=== PATIENT | male | born 1995 | race Caucasian/White ===

== ENCOUNTER 2021-04-03 15:34 | Emergency (ER) | payer BC ==
--- NOTE | 2021-04-03 17:08 | CR ---
PROCEDURE INFORMATION: Exam: XR Left Hand Exam date and time: 04/03/2021 4:54 PM Age: 25 years old Clinical indication: Other: Piece of metal in left hand TECHNIQUE: Imaging protocol: XR Left hand. Views: 1 or 2 views. COMPARISON: No relevant prior studies available. FINDINGS: Bones/joints: No fracture. No malalignment. Soft tissues: A 4 x 2 mm metallic foreign body seen in the dorsal soft tissues projecting over the 4th and 5th metacarpals. Soft tissue swelling noted as well. IMPRESSION: Metallic foreign body as above
[2021-04-03] MEDS ORDERED: Lidocaine 1% 30 ML SDV INJECT ONE (17:35)
--- NOTE | 2021-04-03 19:42 | EDM.PDOC ---
ED HPI GENERAL MEDICAL PROBLEM - General Chief Complaint: Upper Extremity Injury/Pain Stated Complaint: LEFT PINKY KNUCKLE AREA, PIECE OF STEEL IN SKIN Time Seen by Provider: 04/03/21 18:00 Source of Information: Reports: Patient, RN, RN Notes Reviewed History Limitations: Reports: No Limitations - History of Present Illness INITIAL COMMENTS - FREE TEXT/NARRATIVE: Jose is a 25 y/o male who presents to the ED via personal vehicle with complaints of a metal shard stuck in his left hand. The patient reports he was changing a wheel bearing with a colleague under tension, without gloves, and the wheel was dropped. He notes this incident occurred approximately two hours prior. He denies loss of motor or sensory function to the left hand. He notes pain, redness, and swelling that has progressively worsened since the incident. He has taken no medication or performed any supportive cares for his symptoms. Patient is not current with his tetanus vaccine. - Related Data Allergies Allergy/AdvReac Type Severity Reaction Status Date / Time No Known Allergies Allergy Verified 04/03/21 16:23 Home Meds: Home Meds . [No Known Home Meds] 06/01/14 [History] Past Medical History - Past Health History Medical/Surgical History: Denies Medical/Surgical History HEENT History: Reports: Impaired Vision Cardiovascular History: Reports: None Respiratory History: Reports: None Gastrointestinal History: Reports: None Genitourinary History: Reports: None Musculoskeletal History: Reports: None Neurological History: Reports: None Psychiatric History: Reports: None Endocrine/Metabolic History: Reports: None Hematologic History: Reports: None Immunologic History: Reports: None Oncologic (Cancer) History: Reports: None Dermatologic History: Reports: None - Infectious Disease History Infectious Disease History: Reports: None - Past Surgical History Head Surgeries/Procedures: Reports: None Social & Family History - Family History Family Medical History: No Pertinent Family History - Tobacco Use Tobacco Use Status *Q: Never Tobacco User - Caffeine Use Caffeine Use: Reports: Coffee, Soda - Recreational Drug Use Recreational Drug Use: No - Living Situation & Occupation Living situation: Reports: with Family Occupation: Employed Review of Systems - Review of Systems Review Of Systems: Comprehensive ROS is negative, except as noted in HPI. ED EXAM, GENERAL - Physical Exam Exam: See Below Exam Limited By: No Limitations General Appearance: Alert, No Apparent Distress Eye Exam: Bilateral Eye: EOMI, Normal Inspection, PERRL (3mm) Ears: Normal External Exam, Hearing Grossly Normal Nose: Normal Inspection, Normal Mucosa, No Blood Throat/Mouth: Normal Inspection, Normal Oropharynx, Normal Voice, No Airway Compromise Head: Atraumatic, Normocephalic Neck: Normal Inspection, Supple, Non-Tender, Full Range of Motion Respiratory/Chest: No Respiratory Distress, Lungs Clear, Normal Breath Sounds, No Accessory Muscle Use, Chest Non-Tender Cardiovascular: Normal Peripheral Pulses, Regular Rate, Rhythm, No Gallop, No Murmur, No Rub Peripheral Pulses: 2+: Radial (L), Radial (R) GI/Abdominal: Normal Bowel Sounds, Soft, Non-Tender (Male) Exam: Deferred Rectal (Males) Exam: Deferred Back Exam: Normal Inspection, Full Range of Motion Extremities: Normal Range of Motion, No Pedal Edema, Normal Capillary Refill, Arm Pain (To posterior left hand), Redness (To posterior left hand), Other (Swelling to posterior left hand). No: Increased Warmth, Mottled, Pallor Neurological: Alert, Oriented, CN II-XII Intact, Normal Cognition, Normal Gait, No Motor/Sensory Deficits Psychiatric: Normal Affect, Normal Mood Skin Exam: Warm, Dry, Erythema (To posterior left hand), Other (Swelling to posterior left hand). No: Cyanosis, Ecchymosis, Jaundice, Mottled, Pallor ED TRAUMA EXTREMITY PROCEDURES - Laceration/Wound Repair Left Posterior Hand Lac/Wound Length In cm: 2 Appearance: Superficial, Irregular, Clean Distal NVT: Neuro & Vascular Intact, No Tendon Injury Anesthetic Type: Local Local Anesthesia - Lidocaine (Xylocaine): 1% Plain Local Anesthetic Volume: 5cc Skin Prep: Chlorhexidine (Hibiciens), Saline, Sterile Drape Saline Irrigation (cc's): 20 Exploration/Debridement/Repair: Wound Explored, In a Bloodless Field, Explored to Base, No Foreign Material Found Closed With: Sutures Suture Size: 4-0 # of Sutures: 3 Suture Type: Prolene, Interrupted, Simple Drain Placement: No Sterile Dressing Applied: Nurse Tetanus Status Addressed: Yes Complications: No - Foreign Body Removal Indication:: Metal shard confirmed in left posterior hand via Xray Consent Obtained: Patient Performing Doctor:: Dena Gtz Foreign Body Other Location Comment:: Left posterior hand Anesthesia Type: Local Anesthesia Other:: Lidocaine 1% Findings:: Unable to retrieve metal shard. Ultrasound and Fluoroscopy utilized to locate foreign body, without success. Complications:: No Course - Vital Signs Last Recorded V/S: Last Vital Signs Temp 97.1 F 04/03/21 16:18 Pulse 60 04/03/21 16:18 Resp 20 04/03/21 16:18 BP 108/97 H 04/03/21 16:18 Pulse Ox 99 04/03/21 16:18 - Orders/Labs/Meds Orders: Active Orders 24 hr Category Date Time Status Fluoro Up To 1Hr [CR] Routine Exams 04/03/21 18:37 Taken Meds: Medications Discontinued Medications Generic Name Dose Route Start Last Admin Trade Name Freq PRN Reason Stop Dose Admin Amoxicillin/Clavulanate Potassium 1 tab 04/03/21 19:43 04/03/21 19:51 Amoxicillin/Clavulanate K 875-125 Mg Tab PO 04/03/21 19:44 1 tab ONETIME ONE Administration Bacitracin 1 dose 04/03/21 19:43 04/03/21 19:51 Bacitracin Oint 1 Gm U/D Packet TOP 04/03/21 19:44 1 dose ONETIME ONE Administration Lidocaine HCl 30 ml 04/03/21 17:35 04/03/21 17:51 Lidocaine 1% 30 Ml Sdv INJECT 04/03/21 17:36 30 ml ONETIME ONE Administration - Re-Assessments/Exams Free Text/Narrative Re-Assessment/Exam: 04/03/21 Foreign body to left hand confirmed via x-ray. Attempt to remove foreign body unsuccessful. Ultrasound and Fluoroscope used for assistance without success. Will provide prophylaxis treatment with Augmentin. Laceration wound care, as well as suture removal reviewed with patient. Red flag signs and symptoms which would warrant reevaluation discussed. Patient verbalized understanding and agreement with the plan of care. Departure - Departure Time of Disposition: 19:39 Disposition: Home, Self-Care 01 Condition: Good Clinical Impression: Foreign body of left hand Qualifiers: Encounter type: initial encounter Qualified Code(s): S60.552A - Superficial foreign body of left hand, initial encounter - Discharge Information *PRESCRIPTION DRUG MONITORING PROGRAM REVIEWED*: Not Applicable *COPY OF PRESCRIPTION DRUG MONITORING REPORT IN PATIENT RAMÍREZ: Not Applicable Instructions: Hand or Foot Foreign Body, Adult Referrals: PCP,None [Primary Care Provider] - Forms: ED Department Discharge Additional Instructions: Rx: Augmentin 1.) Monitor for signs of infection, including redness, swelling, increased pain, or white/lee drainage. 2.) Take all of your antibiotics until gone, even as symptoms improve. 3.) You may apply an ice pack to the affected area for comfort. 4.) You may take ibuprofen (Motrin/Advil) 400-800mg every six hours, as pain and swelling persist. You may also take acetaminophen (Tylenol) 650-1000mg every six hours, as pain persists. You may stagger these medications so you are taking a dose every three hours. Sepsis Event Note (ED) - Evaluation Sepsis Screening Result: No Definite Risk - My Orders Last 24 Hours: My Active Orders 04/03/21 18:37 Fluoro Up To 1Hr [CR] Routine - Assessment/Plan Last 24 Hours: My Active Orders 04/03/21 18:37 Fluoro Up To 1Hr [CR] Routine
[2021-04-03] MEDS ORDERED: Bacitracin Oint 1 GM U/D Packet TOP ONE (19:43)
[2021-04-03] MEDS ORDERED: Amoxicillin/Clavulanate K 875-125 MG Tab PO ONE (19:43)
[2021-04-04] MEDS ORDERED: Diphtheria,Pertussis(Acell),Tetanus Vaccine 0.5 ML Syringe IM ONE (07:26)
--- NOTE | 2021-04-04 07:43 | PCM.SN.2 ---
- Free Text/Narrative Note: 04/04/20 Functional Support Analyst spoke with patient this AM regarding tetanus vaccine as he did not receive it in the EOD yesterday. He states he will present today and we will administer the vaccine. He states his hand is doing well and questioned a referral to [facility] for potential retrieval. Functional Support Analyst stated I would be willing to write a referral should he require one. Orders placed for [facility]. Time Documentation
== END 2021-04-03 19:55 | disposition home or self-care (01) ==
LOC: DL.ED 15:34
DX: S61.422A Laceration with foreign body of left hand, initial encounter (principal); W22.09XA Striking against other stationary object, initial encounter
CPT/HCPCS: 12001; 73120; 76000; 99283; A9270